=== PATIENT | male | born 1960 | race Caucasian/White ===

== ENCOUNTER 2019-01-10 13:48 | Emergency (ER) | payer MEDICARE ==
[~2019-01-10] VITALS: Ht 167.6 cm; Wt 50.9 kg
[~2019-01-10 13:48] MED LIST: COGENTIN .0.5 MG/TAB PO; EPZICOM PO; FLOMAX 0.40.4 MG/CAP PO; NORCO 325 MG-51 TAB PO; TIVICAY PO; VIREAD PO
[2019-01-10 14:02] VITALS: BP 130/90; PULSE 96; TEMP 97
[2019-01-10] MEDS ORDERED: ROBINUL1 MG PO (15:27)
[2019-01-10] MEDS ORDERED: NYSTATIN OR100 MU/ML PO (15:55)
== END 2019-01-10 16:15 | disposition home or self-care (01) ==
LOC: COL.ER 13:48
DX: B37.0 Candidal stomatitis (principal); G89.29 Other chronic pain; F17.210 Nicotine dependence, cigarettes, uncomplicated; Z21 Asymptomatic human immunodeficiency virus [HIV] infection status

== ENCOUNTER 2019-10-20 13:30 | Day surgery (SDC) | payer MEDICARE, MEDICAID ==
[~2019-10-20 13:30] MED LIST changes: +NYSTATIN OR100 MU/ML PO; +ROBINUL1 MG PO
--- NOTE | 2019-10-20 13:50 | NUR ---
Patient brought back to [facility], ambulated with walker. Patient states he had something to drink an hour ago and something to eat at 1130. Patient states he does not have a ride home from surgery. Nissa made aware, Dr. Matthews made aware. Surgery is canceled at this time. Dr. Matthews would like to speak with patient. services coordinator consult requested. Per Dr. Matthews may be discharged after he speaks with them. services coordinator spoke with patient. Will be in contact with family and office. Patient walked down to car upon discharge.
--- NOTE | 2019-10-20 15:06 | NUR ---
composition siding worker asked to meet with patient as he was unable to be reached yesterday and drove to his surgery today and had ate food this date. Patient's surgery was cancelled. Worker contacted patient's primary care provider, Dr Saunders's nurse and obtained the support contact for patient (Lauren Brooks/sister #[phone]). Worker met with patient to discuss support systems and concerns. Patient states he doesn't have anyone that he could call that would drive him to the hospital, rather only has a friend that doens't drive. Patient states he does not have minutes on his phone until he charges minutes, in a couple of days. Patient gave permission for worker to contact Lauren and discuss needed support for rescheduling his procedure. Worker contacted Lauren and shared the above concerns. Lauren can help patient and will contact Dr Matthews's office to reschedule when she can provide transportation. Lauren escobar has a telehealth case manager through the [employer] program as well as [facility] [employer]. Lauren will attempt to make calls to the telehealth case manager and have them check on patient's needs. Lauren escobar was recently approved for [facility] [employer] [facility], however, may need assisted living. Worker left message for Dr Matthews's nurse and advised Lauren will contact them and provided her number. Worker collaborated with nursing on the outpatient unit regarding the above information.
== END 2019-10-20 14:50 | disposition home or self-care (01) ==
LOC: SDCO 13:30
DX: R33.8 Other retention of urine (principal); F41.9 Anxiety disorder, unspecified; F32.9 Major depressive disorder, single episode, unspecified; Z85.828 Personal history of other malignant neoplasm of skin; Z88.8 Allergy status to other drugs, medicaments and biological substances; B20 Human immunodeficiency virus [HIV] disease; F17.210 Nicotine dependence, cigarettes, uncomplicated; Z82.61 Family history of arthritis; Z80.3 Family history of malignant neoplasm of breast; Z80.8 Family history of malignant neoplasm of other organs or systems; Z82.49 Family history of ischemic heart disease and other diseases of the circulatory system; Z82.3 Family history of stroke; Z53.8 Procedure and treatment not carried out for other reasons

== ENCOUNTER 2019-11-05 09:39 | Day surgery (SDC) | payer MEDICARE, MEDICAID ==
[~2019-11-05] VITALS: Ht 167.6 cm; Wt 50.0 kg
[2019-11-05] VITALS (9 sets, daily range): BP systolic 110–139; BP diastolic 64–88; PULSE 49–83; TEMP 97.4–98
[2019-11-05] MEDS ORDERED: FOSAMAX 70MG TA70 MG PO (10:55)
--- NOTE | 2019-11-05 10:55 | NUR ---
TO RM AT 1012- CALL LIGHT IN REACH SISTER AT BEDSIDE.
--- NOTE | 2019-11-05 13:25 | NUR ---
PATIENT ARRIVED TO ROOM 342 VIA CART FROM PACU. PATIENT IS DROWSY BUT A&O. POST-OP VSS. SUPRAPUBIC CATHETER DRESSING IS CD&I. QUIGLEY CATHETER TO DEPENDENT DRAINAGE. SEE SHIFT ASSESSMENT. CALL LIGHT WITHIN REACH. FAMILY PRESENT AT THE BEDSIDE.
--- NOTE | 2019-11-05 17:20 | NUR ---
POST-OP VITALS COMPLETE. PATIENTS LEFT FOREARM INT DC'D PER PENDING DISCHARGE. CATHETER TEACHING COMPLETE. DISCHARGE INSTRUCTIONS REVIEWED WITH PATIENT AND FAMILY. ALL QUESTIONS ANSWERED. PATIENT PERSONAL BELONGINGS GATHERED. PATIENT TAKEN TO PERSONAL VEHICLE VIA WHEELCHAIR BY SURGICAL STAFF. PATIENT DISCHARGED.
== END 2019-11-05 17:20 | disposition home or self-care (01) ==
LOC: SDCO 09:39 → SURG 13:25 → SDCO 17:20
DX: R33.9 Retention of urine, unspecified (principal); F41.9 Anxiety disorder, unspecified; F32.9 Major depressive disorder, single episode, unspecified; B20 Human immunodeficiency virus [HIV] disease; J44.9 Chronic obstructive pulmonary disease, unspecified; G40.909 Epilepsy, unspecified, not intractable, without status epilepticus; Z88.8 Allergy status to other drugs, medicaments and biological substances; F17.210 Nicotine dependence, cigarettes, uncomplicated; Z85.828 Personal history of other malignant neoplasm of skin; Z82.61 Family history of arthritis; Z80.3 Family history of malignant neoplasm of breast; Z80.8 Family history of malignant neoplasm of other organs or systems; Z82.49 Family history of ischemic heart disease and other diseases of the circulatory system; Z82.3 Family history of stroke; Z91.018 Allergy to other foods
CPT/HCPCS: OP; J0690; J1100; J2405; J2704; J3010; J7120